=== PATIENT | female | born 1965 | race Caucasian/White ===

== ENCOUNTER 2017-11-22 23:58 | Emergency (ER) | payer MEDICAID ==
[2017-11-22 23:59] VITALS: BMI 30.9
[2017-11-23] MEDS ORDERED: Sodium Chloride 0.9% 1,000 ML IV ONE (00:18)
[2017-11-23] MEDS ORDERED: Sodium Chloride 0.9% 0 ML ONE (00:30)
[2017-11-23 00:32] LABS: BASO % 0.7 % (0.0-2.0); EOS # 0.1 K/uL (0.0-0.7); EOS % 1.4 % (0.0-4.0); HEMOGLOBIN 12.1 g/dL (11.0-16.0); LYMPH # 3.4 K/uL (1.0-4.3); LYMPH % 64.6 % (20.0-40.0); MEAN CELL VOLUME 87.9 fL (81.0-99.0); MEAN CORPUSCULAR HEMOGLOBIN 29.4 pg (27.0-31.0); MEAN CORPUSCULAR HGB CONC 33.4 g/dL (33.0-37.0); MEAN PLATELET VOLUME 8.2 fL (7.2-11.7); MONO # 0.5 K/uL (0.0-0.8); MONO % 10.5 % (0.0-10.0); NEUT # 1.2 K/uL (1.8-7.0); NEUT % 22.8 % (50.0-75.0); NRBC % 0.1 % (0.0-2.0); PLATELET COUNT 219 K/uL (130-400); RBC 4.11 Mil/uL (3.80-5.20); RED CELL DISTRIBUTION WIDTH 13.6 % (11.5-14.5); WHITE BLOOD COUNT 5.2 K/uL (4.8-10.8)
[2017-11-23 00:34] LABS: HCG,QUALITATIVE URINE NEGATIVE (NEGATIVE)
[2017-11-23 00:38] LABS: SQUAMOUS EPITHIAL 4 /hpf (0-5); URINE BILIRUBIN NEGATIVE (NEGATIVE); URINE BLOOD NEGATIVE (NEGATIVE); URINE CLARITY Hazy (Clear); URINE COLOR Yellow (YELLOW); URINE GLUCOSE (UA) NORMAL (Normal); URINE LEUKOCYTE ESTERASE 2+ Leu/uL (Negative); URINE PROTEIN NEGATIVE (NEGATIVE); URINE UROBILINOGEN NORMAL mg/dL (0.2-1.0)
[2017-11-23 00:46] LABS: CALCIUM 8.9 mg/dl (8.6-10.4); GFR AFRICAN-AMERICAN > 60; GFR NON-AFRICAN AMERICAN > 60; LIPASE 131 U/L (23-300)
[2017-11-23 00:48] LABS: ALBUMIN 4.2 g/dL (3.5-5.0); ALT/SGPT < 6 U/L (9-52); AST/SGOT 47 U/L (14-36); BLOOD UREA NITROGEN 12 mg/dL (7-17)
[2017-11-23] MEDS ORDERED: Iodixanol 320 MG/ML 100 ML BOTTLE IV ONE (01:28)
[2017-11-23 01:47] LABS: EOSINOPHIL 3 % (0-4); LYMPHOCYTE 23 % (20-40); MONOCYTE 8 % (0-10); NEUTROPHIL 19 % (50-75); PLATELET ESTIMATE NORMAL (NORMAL); REACTIVE LYMPHOCYTES 47 % (0-0); TOTAL CELLS COUNTED 100
--- NOTE | 2017-11-23 03:16 | CT ---
EXAM: CT Abdomen and Pelvis Without and With Intravenous Contrast CLINICAL HISTORY: 52 years old, female; Pain; Abdominal pain; Additional info: Right flank pain, rlq pain, R/O stone vs pyelo TECHNIQUE: Axial computed tomography images of the abdomen and pelvis without and with intravenous contrast. All CT scans at this facility use one or more dose reduction techniques, viz.: automated exposure control; ma/kV adjustment per patient size (including targeted exams where dose is matched to indication; i.e. head); or iterative reconstruction technique. Coronal and sagittal reformatted images were created and reviewed. CONTRAST: 100 mL of [id number] administered intravenously. COMPARISON: No relevant prior studies available. FINDINGS: Limitations: Motion artifact - mild. Lung bases: Minimal atelectasis. ABDOMEN: Liver: Unremarkable. No mass. Gallbladder and bile ducts: No calcified stones. No ductal dilation. Pancreas: Unremarkable. No mass. No ductal dilation. Spleen: No splenomegaly. Adrenals: No mass. Kidneys and ureters: No renal calculi. Mild pelvocaliectasis of RIGHT kidney. Mildly dilated RIGHT proximal mid ureter. Stomach and bowel: No definite mural thickening. No obstruction. PELVIS: Appendix: Normal caliber. No inflammation. Bladder: Apparent mild bladder wall thickening. Incomplete distention, limiting evaluation. No stones. Reproductive: Unremarkable as visualized. ABDOMEN and PELVIS: Intraperitoneal space: No significant fluid collection. No free air. Bones/joints: No acute fracture. Soft tissues: Injection granulomas within gluteal soft tissues. Tiny umbilical hernia containing fat. Vasculature: Minimal atherosclerotic disease. No aneurysm. Lymph nodes: No pathologically enlarged lymph nodes. IMPRESSION: 1. Mild RIGHT hydroureteronephrosis without CT evidence of obstructing calculus. DDX: obstructing radiolucent stone, recently passed ureteral calculus, ureteral stricture, infection, obstructing ureteral mass. Clinical correlation and follow up are recommended. 2. Mild cystitis vs underdistention. Correlate with urinalysis. 3. Incidental/non-acute findings are described above.
[2017-11-23 03:34] VITALS: BP 120/85; PULSE 68; RESP 18; TEMP 97.9
[2017-11-23 03:35] VITALS: O2SAT 100
--- NOTE | 2017-11-23 03:35 | C.PDOC ---
History Of Present Illness 52 y/o female presents to the ED for evaluation of right-sided flank pain which radiates down to her right lower abdomen x 1 week. Patient states symptoms initially felt like her usual back pain but worsened over the past 2 days. Patient also noted blood in her urine two days ago, but states symptoms have resolved today. She denies fever, chills, vomiting, diarrhea, GI bleeding, trauma, recent travel. Time Seen by Provider: 11/23/17 00:17 Chief Complaint (Nursing): Abdominal Pain History Per: Patient History/Exam Limitations: no limitations Onset/Duration Of Symptoms: Days Current Symptoms Are (Timing): Still Present Radiation Of Pain To:: Flank (right) Quality Of Discomfort: "Pain" Associated Symptoms: denies: Fever, Chills, Nausea, Vomiting, Diarrhea Additional History Per: Patient Past Medical History Reviewed: Historical Data, Nursing Documentation, Vital Signs Vital Signs: Last Vital Signs Temp 97.9 F 11/23/17 03:33 Pulse 68 11/23/17 03:33 Resp 18 11/23/17 03:33 BP 120/85 11/23/17 03:33 Pulse Ox 100 11/23/17 06:16 - Medical History PMH: Asthma Surgical History: No Surg Hx Family History: States: Unknown Family Hx - Social History Hx Alcohol Use: No Hx Substance Use: No - Immunization History Hx Tetanus Toxoid Vaccination: No Hx Influenza Vaccination: No Hx Pneumococcal Vaccination: No Review Of Systems Constitutional: Negative for: Fever, Chills Gastrointestinal: Negative for: Vomiting, Diarrhea Musculoskeletal: Positive for: Other (right flank pain ) Physical Exam - Physical Exam Appears: Non-toxic, No Acute Distress Skin: Normal Color, Warm, Dry Head: Atraumatic, Normacephalic Eye(s): bilateral: Normal Inspection Oral Mucosa: Moist Neck: Supple Chest: Symmetrical, No Deformity, No Tenderness Cardiovascular: Rhythm Regular, No Murmur Respiratory: Normal Breath Sounds, No Rales, No Rhonchi, No Wheezing Gastrointestinal/Abdominal: Soft, Tenderness (mild, RLQ ), No Guarding, No Rebound Back: CVA Tenderness (right) Extremity: Normal ROM, Capillary Refill (less than 2 seconds) Neurological/Psych: Oriented x3, Normal Speech, Normal Cognition ED Course And Treatment - Laboratory Results Result Diagrams: 11/23/17 00:28 11/23/17 00:28 O2 Sat by Pulse Oximetry: 100 (on RA) Pulse Ox Interpretation: Normal Medical Decision Making Medical Decision Making: Progress: Bloodwork, UA, CT A/P ordered and reviewed. UA is negative during this time of year. Cirpoflaxin PO, Flomax PO, motrin PO, Toradol IVP, Zofran PO and IVF given. On re-exam, the patient reports improvement of symptoms. Abdomen is soft, non- tender and the tolerating PO well. Follow up with the medical doctor within 1-2 days. Return if worsened. Disposition - Disposition Referrals: Pedro Diggs MD [Staff Provider] - Disposition: HOME/ ROUTINE Disposition Time: 03:32 Condition: GOOD Additional Instructions: follow up with the UROLOGIST within 1-2 days without fail, return if worsened. Prescriptions: Acetaminophen [Tylenol] 325 mg PO Q6 PRN #30 tab PRN Reason: Pain, Mild (1-3) Ciprofloxacin [Cipro] 1 tab PO BID #14 tab Naproxen [Naprosyn] 500 mg PO BID #20 tab Tamsulosin [Flomax] 0.4 mg PO DAILY #10 cap Instructions: Renal Colic (DC) Forms: Melty (Spanish) - Clinical Impression Clinical Impression: Renal colic, UTI (urinary tract infection) - PA / APPRENTICE STYLIST / Resident Statement MD/DO has reviewed & agrees with the documentation as recorded. - Scribe Statement The provider has reviewed the documentation as recorded by the Scribe (Katelin Kohli) All medical record entries made by the Scribe were at my direction and personally dictated by me. I have reviewed the chart and agree that the record accurately reflects my personal performance of the history, physical exam, medical decision making, and the department course for this patient. I have also personally directed, reviewed, and agree with the discharge instructions and disposition.
== END 2017-11-23 03:51 | disposition home or self-care (01) ==
LOC: C.ER 23:58
DX: N39.0 Urinary tract infection, site not specified (principal); N23 Unspecified renal colic
CPT/HCPCS: 74178; 80053; 81001; 83690; 84703; 85025; 87086; 96374; 99284; J1885; Q9967